=== PATIENT | female | born 1955 | race Caucasian/White ===

== ENCOUNTER → 2019-08-02 | Outpatient (CLI) | payer OTHER ==
[~2019-08-02] MED LIST: ASCO1500 PO; AZEL137S4 NAS; CALC1WAF PO; CHOL10003 PO; HYDR25TA6 PO; LOSA100T14 PO; MULT-717 PO; PROP20TA PO; THYR60TA PO; [UNRECOGNIZED DRUG - CODE] SL; [UNRECOGNIZED DRUG - OTHER] VG; progesterone TP
[2019-08-02 10:37] LABS: ALANINE AMINOTRANSFERASE 23 U/L (12-78); ALBUMIN 3.9 g/dL (3.4-5.0); ANION GAP 5 mmol/L (5-15); CALCIUM 9.3 mg/dL (8.5-10.1); CHLORIDE 100 mmol/L (98-107); CREATININE 0.85 mg/dL (0.55-1.02)
[2019-08-02 10:39] LABS: ALKALINE PHOSPHATASE 67 U/L (45-117); BILIRUBIN,TOTAL 0.3 mg/dL (0.2-1.0); TOTAL PROTEIN 7.8 g/dL (6.4-8.2)
== END | disposition home or self-care (01) ==
LOC: STAR 08:48
PROVIDERS: ATTEND Orthopaedic Surgery
DX: Z01.818 Encounter for other preprocedural examination (principal); M19.90 Unspecified osteoarthritis, unspecified site; I10 Essential (primary) hypertension; M17.9 Osteoarthritis of knee, unspecified
CPT/HCPCS: 36415; 80053; 87081; 87147; 93005

== ENCOUNTER 2019-08-08 05:33 | Inpatient (IN) | payer OTHER ==
[~2019-08-08] VITALS: Ht 165.1 cm; Wt 67.6 kg
[2019-08-08] MEDS ORDERED: LACTATED RINGERS 1,000 ML IV SCH (06:09)
[2019-08-08 06:18] VITALS: BP 158/93
[2019-08-08] MEDS ORDERED: KETOROLAC 60 MG/2 ML ONE (06:29)
[2019-08-08] MEDS ORDERED: SODIUM CHLORIDE 0.9% 100 ML ONE (06:29)
[2019-08-08] MEDS ORDERED: ROPIvacaine/PF 0.5%, 20 ML ONE (06:29)
[2019-08-08] MEDS ORDERED: TRANEXAMIC ACID 100 MG/ML, 10ML ONE (06:29)
[2019-08-08] MEDS ORDERED: LIDOCAINE-MPF 1%, 2ML INFIL ONE (06:30)
[2019-08-08] MEDS ORDERED: VANCOMYCIN PMX 1GM/200ML 200 ML IV ONE (06:30)
[2019-08-08] MEDS ORDERED: MIDAZOLAM 1 MG/ML, 2ML ONE (06:41)
[2019-08-08] MEDS ORDERED: FENTANYL PF 250 MCG/5ML ONE (06:41)
[2019-08-08] MEDS ORDERED: GABAPENTIN 300 MG CAPSULE ONE (06:48)
[2019-08-08] MEDS ORDERED: ACETAMINOPHEN 500 MG TABLET ONE (06:49)
[2019-08-08] MEDS ORDERED: OxyconTIN ER 10 MG TAB.ER ONE (06:55)
[2019-08-08] MEDS ORDERED: SCOPOLAMINE 1MG PATCH TD ONE (06:56)
[2019-08-08] MEDS ORDERED: SUCCINYLCHOLINE 20 MG/ML, 10ML ONE (06:57)
[2019-08-08] MEDS ORDERED: OxyconTIN ER 10 MG TAB.ER PO ONE (07:00)
[2019-08-08] MEDS ORDERED: GABAPENTIN 300 MG CAPSULE PO ONE (07:00)
[2019-08-08] MEDS ORDERED: SCOPOLAMINE 1MG PATCH TD SCH (07:00)
[2019-08-08] MEDS ORDERED: ACETAMINOPHEN 500 MG TABLET PO ONE (07:00)
[2019-08-08] MEDS ORDERED: morphine SULFATE/PF 1 MG/ML, 10ML ONE (07:23)
[2019-08-08] MEDS ORDERED: DEXAMETHASONE 4 MG/ML, 1ML ONE (08:05)
[2019-08-08] MEDS ORDERED: CEFAZOLIN 1,000 MG ONE (08:05)
[2019-08-08] MEDS ORDERED: ONDANSETRON 2MG/ML, 2ML ONE (08:05)
[2019-08-08] MEDS ORDERED: LIDOCAINE-MPF 2% ,5ML ONE (08:05)
[2019-08-08] MEDS ORDERED: PROPOFOL 10 MG/ML, 20ML ONE (08:05)
[2019-08-08] MEDS: FENTANYL PF 100 MCG/2ML IV PRN ×2 (09:05→09:20)
[2019-08-08] MEDS ORDERED: FENTANYL PF 100 MCG/2ML ONE (09:05)
[2019-08-08] MEDS ORDERED: hydrALAzine 20 MG/ML, 1ML IV PRN (09:30)
[2019-08-08] MEDS ORDERED: PROMETHAZINE 25 MG/ML, 1ML IV PRN (09:30)
[2019-08-08] MEDS ORDERED: MEPERIDINE/PF 25MG/ML,1ML IVPush PRN (09:30)
[2019-08-08] MEDS ORDERED: HYDROmorphone 2 MG/ML, 1ML IVPush PRN (09:30)
[2019-08-08] MEDS ORDERED: HYDROmorphone 1 MG/ML, 1ML INJ ONE (09:36)
[2019-08-08 10:30] VITALS: BP 134/72
[2019-08-08] MEDS ORDERED: MAGNESIUM HYDROXIDE 8%, 30ML UDC PO PRN (11:30)
[2019-08-08] MEDS ORDERED: ONDANSETRON 2MG/ML, 2ML IV PRN (11:30)
[2019-08-08] MEDS ORDERED: BISACODYL 10 MG SUPP PR PRN (11:30)
[2019-08-08] MEDS ORDERED: ACETAMINOPHEN 325 MG TABLET PO PRN (11:30)
[2019-08-08] MEDS ORDERED: morphine SULFATE 10 MG/ML, 1ML IV PRN (11:30)
[2019-08-08] MEDS: OXYcodone 5 MG/5 ML ORAL.SOL UDC PO PRN ×2 (12:28→19:24)
[2019-08-08 14:30] VITALS: BP 130/68
[2019-08-08] MEDS: SODIUM CHLORIDE 0.9% 1,000 ML IV SCH (15:10)
[2019-08-08] MEDS: CEFAZOLIN PMX 2GM/50ML 50 ML IVPB SCH ×2 (15:10→22:59)
[2019-08-08] MEDS: KETOROLAC 30 MG/1 ML IV SCH ×2 (15:10→22:59)
[2019-08-08 18:40] VITALS: BP 150/82
[2019-08-08] MEDS: SODIUM CHLORIDE FLUSH 10ML SYR IVF SCH (20:22)
[2019-08-08] MEDS: DOCUSATE 100 MG CAPSULE PO SCH (20:25)
[2019-08-08] MEDS: PROPRANOLOL 20 MG TABLET PO SCH (21:30)
[2019-08-08] MEDS ORDERED: PROPRANOLOL 10 MG TABLET ONE (21:31)
[2019-08-08 23:04] VITALS: BP 130/69
[2019-08-09] MEDS: SODIUM CHLORIDE 0.9% 1,000 ML IV SCH ×2 (01:10→11:30)
[2019-08-09] MEDS: OXYcodone 5 MG/5 ML ORAL.SOL UDC PO PRN ×3 (01:11→10:06)
[2019-08-09 04:01] VITALS: BP 131/72
[2019-08-09] MEDS ORDERED: THYROID 30 MG TABLET PO SCH (06:00)
[2019-08-09] MEDS: KETOROLAC 30 MG/1 ML IV SCH (06:25)
[2019-08-09 06:39] VITALS: BP 125/79
[2019-08-09] MEDS ORDERED: PROPRANOLOL 10 MG TABLET ONE (08:12)
[2019-08-09] MEDS: PROPRANOLOL 20 MG TABLET PO SCH (08:19)
[2019-08-09] MEDS: DOCUSATE 100 MG CAPSULE PO SCH (08:19)
[2019-08-09] MEDS: SODIUM CHLORIDE FLUSH 10ML SYR IVF SCH (08:20)
[2019-08-09] MEDS ORDERED: LOSARTAN 100 MG TAB PO SCH (09:00)
[2019-08-09] MEDS ORDERED: ASPIRIN 325 MG TABLET PO SCH (09:00)
[2019-08-09] MEDS ORDERED: HYDROCHLOROTHIAZIDE 25 MG TABLET PO SCH (09:00)
== END 2019-08-09 12:20 | disposition home or self-care (01) | DRG 470 ==
LOC: OUT 05:33 → 4NE 10:17 → OUT 10:47 → DCLOUNGE 08-09 12:10
PROVIDERS: ADMIT Orthopaedic Surgery; ATTEND Orthopaedic Surgery
PROC: 0SRC0J9 Replacement of Right Knee Joint with Synthetic Substitute, Cemented, Open Approach (ICD-10-PCS; principal; 2019-08-08 07:00)
DX: M17.11 Unilateral primary osteoarthritis, right knee (principal); M67.20 Synovial hypertrophy, not elsewhere classified, unspecified site; E78.5 Hyperlipidemia, unspecified; I10 Essential (primary) hypertension; Z88.8 Allergy status to other drugs, medicaments and biological substances; Z79.899 Other long term (current) drug therapy; Z90.710 Acquired absence of both cervix and uterus
CPT/HCPCS: C1713; G0378; J0690; J1100; J1170; J1885; J2250; J2274; J2405; J2704; J2795; J3010; J3370; C1776; J0330; J7030; J7120

== ENCOUNTER → 2020-06-19 | Outpatient (CLI) | payer OTHER ==
[2020-06-19 14:04] LABS: ANION GAP 9 mmol/L (5-15); CALCIUM 9.7 mg/dL (8.5-10.1); CHLORIDE 102 mmol/L (98-107)
[2020-06-19 14:08] LABS: ALANINE AMINOTRANSFERASE 27 U/L (12-78); ALKALINE PHOSPHATASE 68 U/L (45-117); BILIRUBIN,TOTAL 0.4 mg/dL (0.2-1.0); CREATININE 0.71 mg/dL (0.55-1.02); TOTAL PROTEIN 7.7 g/dL (6.4-8.2)
== END | disposition home or self-care (01) ==
LOC: STAR 10:47
PROVIDERS: ATTEND Orthopaedic Surgery
DX: Z01.812 Encounter for preprocedural laboratory examination (principal); Z20.828 Contact with and (suspected) exposure to other viral communicable diseases; I10 Essential (primary) hypertension; M17.9 Osteoarthritis of knee, unspecified; M19.90 Unspecified osteoarthritis, unspecified site; M17.11 Unilateral primary osteoarthritis, right knee; M17.12 Unilateral primary osteoarthritis, left knee; Z96.651 Presence of right artificial knee joint; Z51.89 Encounter for other specified aftercare
CPT/HCPCS: 80053; 87081; 87147; 87635; 93005

== ENCOUNTER 2020-06-25 10:55 | Day surgery (SDC) | payer OTHER ==
[~2020-06-25] VITALS: Ht 165.1 cm; Wt 65.6 kg
[~2020-06-25 10:55] MED LIST changes: +EPHEDRINE 50 MG/ML, 1ML IVPush PRN; +HYDROmorphone 1 MG/ML, 1ML INJ IVPush PRN; +KETOROLAC 60 MG/2 ML ONE; +LABETALOL 5MG/ML, 20ML IV PRN; +ONDANSETRON 2MG/ML, 2ML IVPush PRN; +OXYcodone 5 MG/5 ML ORAL.SOL UDC PO PRN; +PROMETHAZINE 25 MG/ML, 1ML IVPush PRN; +ROPIvacaine/PF 0.5%, 30 ML ONE; +TRANEXAMIC ACID 100 MG/ML, 10ML ONE; +hydrALAzine 20 MG/ML, 1ML IV PRN; +morphine SULFATE/PF 0.5 MG/ML, 10ML ONE
[2020-06-25] MEDS ORDERED: PROBIOTIC PO (11:41)
[2020-06-25 11:42] VITALS: BP 176/103
[2020-06-25] MEDS ORDERED: ACETAMINOPHEN 500 MG TABLET PO ONE (12:00)
[2020-06-25] MEDS ORDERED: CHLORHEXIDINE 15 ML UDC MM ONE (12:00)
[2020-06-25] MEDS ORDERED: MIDAZOLAM 1 MG/ML, 2ML ONE (12:16)
[2020-06-25] MEDS ORDERED: FENTANYL PF 250 MCG/5ML ONE (12:17)
[2020-06-25] MEDS ORDERED: LACTATED RINGERS 1,000 ML IV SCH (12:30)
[2020-06-25] MEDS: FENTANYL PF 100 MCG/2ML IV PRN ×3 (14:25→17:15)
[2020-06-25] MEDS ORDERED: ONDANSETRON 2MG/ML, 2ML ONE (16:13)
[2020-06-25] MEDS ORDERED: DEXAMETHASONE 4 MG/ML, 5ML ONE (16:13)
[2020-06-25] MEDS ORDERED: CEFAZOLIN 1,000 MG ONE (16:13)
[2020-06-25] MEDS ORDERED: PROPOFOL 10 MG/ML, 20ML ONE (16:13)
[2020-06-25] MEDS ORDERED: SUCCINYLCHOLINE 20 MG/ML, 10ML ONE (16:13)
[2020-06-25] MEDS ORDERED: EPHEDRINE 50 MG/ML, 1ML ONE (16:24)
[2020-06-25] MEDS ORDERED: TRANEXAMIC ACID 1,000 MG in SODIUM CHLORIDE 0.9% 100 ML IVPB ONE (17:00)
[2020-06-25] MEDS ORDERED: OXYcodone 5 MG/5 ML ORAL.SOL UDC ONE (17:06)
[2020-06-25] MEDS ORDERED: FENTANYL PF 100 MCG/2ML ONE ×2 (17:06→17:25)
[2020-06-25] MEDS ORDERED: KETOROLAC 30 MG/1 ML ONE (17:25)
[2020-06-25] MEDS ORDERED: KETOROLAC 30 MG/1 ML IVPush ONE (18:00)
== END 2020-06-25 21:05 | disposition home or self-care (01) ==
LOC: OUT 10:55
PROVIDERS: ATTEND Orthopaedic Surgery
DX: M17.12 Unilateral primary osteoarthritis, left knee (principal); M25.762 Osteophyte, left knee; I10 Essential (primary) hypertension; E03.9 Hypothyroidism, unspecified; G89.18 Other acute postprocedural pain; Z79.890 Hormone replacement therapy; Z79.891 Long term (current) use of opiate analgesic; Z79.899 Other long term (current) drug therapy; Z88.8 Allergy status to other drugs, medicaments and biological substances; Z96.651 Presence of right artificial knee joint; Z98.890 Other specified postprocedural states
CPT/HCPCS: 27447; 64447; C1713; C1776; J0330; J0690; J1100; J1885; J2250; J2274; J2405; J2704; J2795; J3010